=== PATIENT | female | born 1985 | race Hispanic/Latino ===

== ENCOUNTER 2024-05-21 22:42 | Emergency (ER) | payer BC ==
[2024-05-21] MEDS ORDERED: DIAZEPAM 5 MG TABLET ONE (23:07)
[2024-05-21] MEDS ORDERED: ASPIRIN 81 MG CHEWABLE TABLET ONE (23:07)
[2024-05-21 23:41] LABS: Absolute Eosinophils 0.1 K/uL (0-0.5); Absolute Monocytes 0.6 K/uL (0.1-1.3); Absolute Neutrophil 4.1 K/uL (1.8-8.0); Basophils % 0.2 % (0-1.3); Eosinophils % 1.2 % (0-4.4); Hematocrit 36.8 % (36.0-45.0); Hemoglobin 11.3 g/dL (12.0-15.0); Lymphocytes % 45.4 % (15.3-44.8); MCH 21.4 pg (27.0-35.0); MCHC 30.7 g/dL (32.0-36.0); MCV 69.8 fL (80-100); MPV 8.2 fL (7.6-11.3); Monocytes % 6.4 % (3.3-12.3); Neutrophils % 46.8 % (41.7-73.7); Nucleated Red Blood Cells % 0.1 % (0-0); Platelets 395 thou/uL (152-406); RBC Red Blood Cell Count 5.27 M/uL (3.86-4.86); Red Cell Distribution Width 16.3 % (12.1-15.2)
[2024-05-22] LABS: PT Prothrombin Time 11.3 SECONDS (9.4-12.5); Protime INR 1.01
[2024-05-22 00:01] LABS: D-Dimer 0.507 FEUug/mL (0-0.50)
[2024-05-22 00:16] LABS: ALT/SGPT 62 U/L (13-56); AST/SGOT 55 U/L (15-37); Albumin 3.5 g/dL (3.4-5.0); Albumin/Globulin Ratio 0.8 (1.1-1.8); Alkaline Phosphatase 105 U/L (45-117); Anion Gap 16.5 mEq/L (5.0-15.0); BUN Blood Urea Nitrogen 6 mg/dL (7-18); Bicarbonate 22 mEq/L (21-32); Bilirubin Total 0.3 mg/dL (0.2-1.0); Globulin 4.6 g/dL (2.3-3.5); Glomerular Filtration Rate 102 ml/min (=/>90); Magnesium 1.9 mg/dL (1.6-2.4); NT PRO-BNP 35 pg/mL (<125); Potassium 3.5 mEq/L (3.5-5.1); Protein, Total 8.1 g/dL (6.4-8.2); Sodium Level 133 mEq/L (136-145); Troponin High Sensitivity 8.7 pg/mL (<58.9)
[2024-05-22 00:17] LABS: Bilirubin Direct < 0.2 mg/dL (0-0.2); Bilirubin Indirect, Calculated 0.1 mg/dL (0.2-0.8)
[2024-05-22 00:18] LABS: Glucose Level 490 mg/dL (74-106)
[2024-05-22] MEDS ORDERED: INSULIN REGULAR (HUMAN) 100 UNIT/ML ONE (00:22)
[2024-05-22] MEDS ORDERED: NA CHLORIDE 0.9% 1,000 ML ONE (00:23)
--- NOTE | 2024-05-22 02:17 | ER ---
Nurse's Notes [facility] Name: Janette Brush Age: 38 yrs Sex: Female : 1985 Arrival Date: 05/21/2024 Time: 22:42 Bed 4 Private MD: Diagnosis: Type 2 diabetes mellitus with hyperglycemia Presentation: 05/21 22:55 Chief complaint: Patient states: about 30 minutes ago began to have difficulty tm6 breathing, all of a sudden. Coronavirus screen: Vaccine status: Patient reports being unvaccinated. Ebola Screen: Patient negative for fever greater than or equal to 101.5 degrees Fahrenheit, and additional compatible Ebola Virus Disease symptoms Patient denies exposure to infectious person. Patient denies travel to an Ebola-affected area in the 21 days before illness onset. No symptoms or risks identified at this time. Initial Sepsis Screen: Does the patient meet any 2 criteria? RR > 20 per min. No. Patient's initial sepsis screen is negative. Does the patient have a suspected source of infection? No. Patient's initial sepsis screen is negative. Risk Assessment: Do you want to hurt yourself or someone else? Patient reports no desire to harm self or others. Onset of symptoms was May 21, 2024 at 20:30. 22:55 Method Of Arrival: Wheelchair tm6 22:55 Acuity: LARS 3 tm6 Triage Assessment: 22:56 General: Appears distressed, Behavior is cooperative. Pain: Denies pain. EENT: No signs tm6 and/or symptoms were reported regarding the EENT system. Neuro: Level of Consciousness is awake, alert, obeys commands, Oriented to person, place, time, situation. Cardiovascular: Patient's skin is warm and dry. Respiratory: Reports shortness of breath at rest since 30 minutes ago Airway is patent Respiratory effort is labored, Respiratory pattern is tachypnea Breath sounds are clear bilaterally. Onset: The symptoms/episode began/occurred just prior to arrival, the patient has mild shortness of breath. GI: Abdomen is round. : No signs and/or symptoms were reported regarding the genitourinary system. Derm: No signs and/or symptoms reported regarding the dermatologic system. Musculoskeletal: No signs and/or symptoms reported regarding the musculoskeletal system. 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 - Infectious Disease History:: Denies. - Social history:: Smoking status: Patient denies any tobacco usage or history of. Patient uses alcohol, occasionally. - Family history:: not pertinent. Screenin:58 [facility] ED Fall Risk Assessment (Adult) History of falling in the last 3 months, tm6 including since admission No falls in past 3 months (0 pts) Confusion or Disorientation No (0 pts) Intoxicated or Sedated No (0 pts) Impaired Gait No (0 pts) Mobility Assist Device Used No (0 pt) Altered Elimination No (0 pt) Score/Fall Risk Level 0 - 2 = Low Risk Oriented to surroundings, Maintained a safe environment, Educated pt \T\ family on fall prevention, incl call for assistance when getting out of bed. Abuse screen: Denies threats or abuse. Denies injuries from another. Nutritional screening: No deficits noted. Tuberculosis screening: No symptoms or risk factors identified. Assessment: 22:58 Reassessment: see triage assessment. tm6 23:51 Reassessment: Patient and/or family updated on plan of care and expected duration. Pain tm6 level reassessed. Patient is alert, oriented x 3, equal unlabored respirations, skin warm/dry/pink. 05/22 01:02 Reassessment: Patient appears in no apparent distress at this time. tm6 02:02 Reassessment: Patient appears in no apparent distress at this time. Patient and/or jb4 family updated on plan of care and expected duration. Pain level reassessed. Patient is alert, oriented x 3, equal unlabored respirations, skin warm/dry/pink. 02:30 Cardiovascular: Rhythm is sinus rhythm. tm6 Vital Signs: 05/21 22:55 BP 131 / 99; Pulse 99; Resp 25; Temp 98.5(TE); Pulse Ox 99% on R/A; Weight 104.33 kg; tm6 Height 5 ft. 2 in. ; Pain 0/10; 23:51 Pulse 83; Pulse Ox 98% on R/A; Pain 0/10; tm6 05/22 01:01 BP 111 / 71; Pulse 80; Pulse Ox 99% on R/A; Pain 0/10; tm6 02:29 BP 118 / 67; Pulse 77; Resp 16; Temp 98.5(TE); Pulse Ox 100% on R/A; Pain 0/10; tm6 05/21 22:55 Body Mass Index 42.07 (104.33 kg, 157.48 cm) tm6 05/21 22:55 Pain Scale: Adult tm6 23:51 Pain Scale: Adult tm6 05/22 01:01 Pain Scale: Adult tm6 02:29 Pain Scale: Adult tm6 Mary Coma Score: 04:23 Eye Response: spontaneous(4). Motor Response: obeys commands(6). Verbal Response: sp4 oriented(5). Total: 15. ED Course: 05/21 22:47 Patient arrived in ED. jj6 22:47 Pb Galeano MD is Attending Physician. sp4 22:55 Agustin Bello, LYNETTE is Primary Nurse. tm6 22:56 Triage completed. tm6 22:56 Arm band placed on right wrist. EKG completed in triage. Results shown to MD. tm6 22:58 Patient has correct armband on for positive identification. Bed in low position. Call tm6 light in reach. Side rails up X 1. Provided Education on: use of call frausto. Client placed on continuous cardiac and pulse oximetry monitoring. NIBP monitoring applied. court monitor on. Pulse ox on. NIBP on. Door closed. Noise minimized. 23:30 Initial lab(s) drawn, by me, by EMS personnel. EKG done, by ED staff, reviewed by nick Galeano MD. Inserted saline lock: 20 gauge in right antecubital area, using aseptic technique. Blood collected. 23:33 Troponin HS Sent. jb4 23:33 PT-INR Sent. jb4 23:33 NT PRO-BNP Sent. jb4 23:33 Magnesium Sent. jb4 23:33 LFT's Sent. jb4 23:33 D-Dimer Sent. jb4 23:33 CBC with Diff Sent. jb4 23:33 Basic Metabolic Panel Sent. jb4 23:34 TSH Sent. jb4 23:34 T4 Free Sent. jb4 05/22 00:01 XRAY Chest (1 view) In Process Unspecified. EDMS 00:17 Notified ED physician of a critical lab result(s). glucose 490. tm6 02:16 Jono Fabian DO is Referral Physician. sp4 02:30 No provider procedures requiring assistance completed. IV discontinued, intact, tm6 bleeding controlled, No redness/swelling at site. Pressure dressing applied. Administered Medications: 05/21 23:11 Not Given (Other Intervention Used): diazepam5 mg IVP once jb4 23:11 Drug: Aspirin PO Chewable Tablet 324 mg PO once; 81 mg tablets x 4 Route: PO; jb4 23:11 Drug: Diazepam PO 10 mg PO once Route: PO; jb4 05/22 00:27 Drug: NS 0.9% IV 1000 ml IV at 1 bolus Per protocol; 1000 mL bolus Route: IV; Rate: 1 tm6 bolus; Site: right antecubital; 02:32 Follow up: IV Status: Completed infusion; IV Intake: 1000ml tm6 00:31 Drug: Insulin Regular Human IVP 10 units IVP once {Co-Signature: nick (Erik Crenshaw tm6 RN).} Route: IVP; Site: right antecubital; Medication: 05/21 22:58 VIS not applicable for this client. tm6 Intake: 05/22 02:32 IV: 1000ml; Total: 1000ml. tm6 Outcome: 02:17 Discharge ordered by . sp4 02:30 Discharged to home ambulatory, with family, tm6 02:30 Condition: stable 02:30 Discharge instructions given to patient, family, Instructed on discharge instructions, follow up and referral plans. medication usage, new diabetes diagnosis. Exercise, eating education. Follow up with PCP. Provided information on the free diabetes education program with [place] [facility]. Demonstrated understanding of instructions, follow-up care, medications, diabetes education Prescriptions given X 2, 02:31 Patient left the ED. tm6 Signatures: Dispatcher [employer] Erik Oneill, RN RN Cleo Muhammad Sergey, MD MD sp4 Agustin Bello RN RN [email or web address] Erik Crenshaw RN
--- NOTE | 2024-05-22 02:17 | EDPHYS ---
Physician Documentation [facility] Name: Janette Brush Age: 38 yrs Sex: Female : 1985 Arrival Date: 05/21/2024 Time: 22:42 Bed 4 Private MD: ED Physician Pb Galeano HPI: 05/21 22:47 This 38 yrs old Female presents to ER via Unassigned with complaints of sp4 Shortness Of Breath, Chest Tightness. 05/22 01:35 38-year-old female presents with acute shortness of breath starting spontaneously while sp4 sitting in the backyard. 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 - Infectious Disease History:: Denies. - Social history:: Smoking status: Patient denies any tobacco usage or history of. Patient uses alcohol, occasionally. - Family history:: not pertinent. ROS: 05/22 01:35 Constitutional: Negative for fever, chills, and weight loss, positive acute dyspnea sp4 Eyes: Negative for injury, pain, redness, and discharge, ENT: Negative for injury, pain, and discharge, Neck: Negative for injury, pain, and swelling, Cardiovascular: Negative for chest pain, palpitations, and edema, Respiratory: positive Acute dyspnea Abdomen/GI: Negative for abdominal pain, nausea, vomiting, diarrhea, and constipation, Back: Negative for injury and pain, MS/Extremity: Negative for injury and deformity, Skin: Negative for injury, rash, and discoloration, Neuro: Negative for headache, weakness, numbness, tingling, and seizure, Psych: Negative for depression, anxiety, Allergy/Immunology: Negative for hives, rash, and allergies All other systems are negative, Exam: 01:35 Constitutional: This is a well developed, well nourished patient who is awake, alert, sp4 anxious appearing female Head/Face: Normocephalic, atraumatic. Eyes: Pupils equal round and reactive to light, extra-ocular motions intact. Lids and lashes normal. Conjunctiva and sclera are not injected. Cornea within normal limits. Periorbital areas with no swelling, redness, or edema. ENT: Nares patent. No nasal discharge, no septal abnormalities noted. Tympanic membranes are normal and external auditory canals are clear. Oropharynx with no redness, swelling, or masses, exudates, or evidence of obstruction, uvula midline. Mucous membranes moist. Neck: Trachea midline, no thyromegaly or masses palpated, and no cervical lymphadenopathy. Supple, full range of motion without nuchal rigidity, or vertebral point tenderness. Chest/axilla: Normal chest wall appearance and motion. Nontender with no deformity. No lesions are appreciated. Cardiovascular: Regular rate and rhythm with a normal S1 and S2. No gallops, murmurs, or rubs. Normal PMI, no JVD. No pulse deficits. Respiratory: Lungs have equal breath sounds bilaterally, clear to auscultation and percussion. No rales, rhonchi or wheezes noted. No increased work of breathing, no retractions or nasal flaring. Abdomen/GI: Soft, with normal bowel sounds. No distension or tympany. No guarding or rebound. No evidence of tenderness throughout. Back: No spinal tenderness. No costovertebral tenderness. Skin: Warm, dry with normal turgor. Normal color with no rashes, no lesions, and no evidence of cellulitis. MS/ Extremity: Pulses equal, no cyanosis. Neurovascular intact. Full, normal range of motion. Neuro: Awake and alert, GCS 15, oriented to person, place, time, and situation. Cranial nerves II-XII grossly intact. Motor strength 5/5 in all extremities. Sensory grossly intact. Psych: Awake, alert, with orientation to person, place and time. Behavior, mood, and affect are within normal limits 01:35 ECG was reviewed by the Attending Physician. EKG 2301 reveals normal sinus rhythm at the rate of 95. Vital Signs: 05/21 22:55 BP 131 / 99; Pulse 99; Resp 25; Temp 98.5(TE); Pulse Ox 99% on R/A; Weight 104.33 kg; tm6 Height 5 ft. 2 in. ; Pain 0/10; 23:51 Pulse 83; Pulse Ox 98% on R/A; Pain 0/10; tm6 05/22 01:01 BP 111 / 71; Pulse 80; Pulse Ox 99% on R/A; Pain 0/10; tm6 02:29 BP 118 / 67; Pulse 77; Resp 16; Temp 98.5(TE); Pulse Ox 100% on R/A; Pain 0/10; tm6 05/21 22:55 Body Mass Index 42.07 (104.33 kg, 157.48 cm) 6 05/21 22:55 Pain Scale: Adult tm6 23:51 Pain Scale: Adult tm6 05/22 01:01 Pain Scale: Adult tm6 02:29 Pain Scale: Adult tm6 Mary Coma Score: 04:23 Eye Response: spontaneous(4). Motor Response: obeys commands(6). Verbal Response: sp4 oriented(5). Total: 15. MDM: 05/21 22:50 Patient medically screened. 4 05/22 01:42 ED course: EXAM DESCRIPTION: Chest Single View 05/22/2024 12:05 AM CDT CLINICAL HISTORY: sp4 38 years, Female, DYSPNEA COMPARISON: None FINDINGS: 1 views of the chest was obtained. No prior films are available at this time for comparison. There is slight decreased lung volume. Mediastinum: The cardiomediastinal silhouette appears normal in size and shape. Lungs: No areas of consolidations or masses are identified. Heart: The heart is normal in size. Thoracic aorta: The thoracic aorta demonstrate to be normal. Pulmonary vasculature: The pulmonary vasculature is normal in distribution. Pleura: The costophrenic angles demonstrate to be sharp. Osseous structures: The bony structures demonstrate to be within normal limits. Other: None. IMPRESSION: No acute cardiopulmonary disease is seen. 04:23 Differential diagnosis: Anemia Anxiety Reaction asthma, Bronchitis CHF exacerbation, sp4 Chronic Obstructive Pulmonary Disease. Data reviewed: vital signs, nurses notes, lab test result(s), EKG, radiologic studies, plain films. 05/21 22:54 Order name: Basic Metabolic Panel; Complete Time: 01:38 [facility] 05/21 22:54 Order name: CBC with Diff 4 05/21 22:54 Order name: D-Dimer [facility] 05/21 22:54 Order name: LFT's; Complete Time: 01:38 [facility] 05/21 22:54 Order name: Magnesium; Complete Time: 01:38 [facility] 06/20 22:54 Order name: NT PRO-BNP; Complete Time: 01:38 4 05/21 22:54 Order name: PT-INR [facility] 05/21 22:54 Order name: Troponin HS; Complete Time: 01:38 [facility] 05/21 22:55 Order name: TSH; Complete Time: 01:38 4 05/21 22:55 Order name: T4 Free; Complete Time: 01:38 [facility] 05/21 23:53 Order name: CBC Smear Scan [facility]TX 05/22 01:43 Order name: Glucose, Ancillary Testing; Complete Time: 01:47 [facility]TX 05/21 22:54 Order name: XRAY Chest (1 view) [facility] 05/21 22:54 Order name: Cardiac monitoring; Complete Time: 23:04 [facility] 05/21 22:54 Order name: EKG - Nurse/Tech; Complete Time: 23:04 [facility] 05/21 22:54 Order name: IV Saline Lock; Complete Time: 23:34 [facility] 05/21 22:54 Order name: Labs collected and sent; Complete Time: 23:34 [facility] 05/21 22:54 Order name: O2 Per Protocol; Complete Time: 23:04 [facility] 05/21 22:54 Order name: O2 Sat Monitoring; Complete Time: 23:04 sp4 EC:35 Rate is 95 beats/min. Rhythm is regular, Normal Sinus Rhythm. QRS [place] is Normal. [place] sp4 interval is normal. QRS interval is normal. QT interval is prolonged. No Q waves. T waves are Normal. No ST changes noted. Clinical impression: Normal ECG. Interpreted by me. Reviewed by me. Administered Medications: 05/21 23:11 Not Given (Other Intervention Used): diazepam5 mg IVP once 4 23:11 Drug: Aspirin PO Chewable Tablet 324 mg PO once; 81 mg tablets x 4 Route: PO; 23:11 Drug: Diazepam PO 10 mg PO once Route: PO; 05/22 00:27 Drug: NS 0.9% IV 1000 ml IV at 1 bolus Per protocol; 1000 mL bolus Route: IV; Rate: 1 tm6 bolus; Site: right antecubital; 02:32 Follow up: IV Status: Completed infusion; IV Intake: 1000ml tm6 00:31 Drug: Insulin Regular Human IVP 10 units IVP once {Co-Signature: nick (Erik Crenshaw tm6 RN).} Route: IVP; Site: right antecubital; Disposition Summary: 05/22/24 02:17 Discharge Ordered Notes: Location: Home sp4 Problem: new sp4 Symptoms: have improved sp4 Condition: Stable sp4 Diagnosis - Type 2 diabetes mellitus with hyperglycemia sp4 Followup: sp4 - With: Jono Fabian DO - When: 7 - 10 days - Reason: Recheck today's complaints Discharge Instructions: - Discharge Summary Sheet sp4 - Type 2 Diabetes Mellitus, Diagnosis, Adult sp4 Forms: - Patient Portal Instructions sp4 Prescriptions: - Glipizide 5 mg Oral tablet - take 1 tablet ORAL route once daily before a meal; 30 tablet; Refills: 0, sp4 Product Selection Permitted - Metformin 1,000 mg Oral tablet - take 1 tablet ORAL route every 12 hours with morning and evening meals; 60 sp4 tablet; Refills: 0, Product Selection Permitted Signatures: Dispatcher [employer] Erik Oneill RN RN jb4 Pb Galeano MD MD sp4 Agustin Bello RN RN tm6 Erik Crenshaw RN jb4 Corrections: (The following items were deleted from the chart) 05/21 22:55 22:55 BASIC METABOLIC PANEL+C.LAB.BRZ ordered. EDMS EDMS 22:55 22:55 CBC+H.LAB.BRZ ordered. EDMS EDMS 22:55 22:55 D-DIMER+COAG.LAB.BRZ ordered. EDMS EDMS 22:55 22:55 HEPATIC FUNCTION+C.LAB.BRZ ordered. EDMS EDMS 22:55 22:55 MAGNESIUM+C.LAB.BRZ ordered. EDMS EDMS 22:55 22:55 PROBNP+C.LAB.BRZ ordered. EDMS EDMS 22:55 22:55 PROTIME (+INR)+COAG.LAB.BRZ ordered. EDMS EDMS 22:55 22:55 Troponin High Sensitivity+C.LAB.BRZ ordered. EDMS EDMS 22:55 22:55 Chest Single View+RAD.RAD.BRZ ordered. EDMS EDMS 22:55 22:55 THYROID STIMULAT HORMONE+C.LAB.BRZ ordered. EDMS EDMS 22:55 22:55 T4 FREE+C.LAB.BRZ ordered. EDMS EDMS
[2024-05-22 03:29] VITALS: BP 118/67; TEMP 98.5; O2SAT 100
[2024-05-22 04:19] LABS: Blood Morphology Comment NOTED (NOT SEEN); Platelet Estimate ADEQ; White Blood Cell Scan OK (OK)
[2024-05-22 04:20] LABS: Hypochromasia 1+; Microcytosis 2+
--- NOTE | 2024-05-22 12:03 | RAD REPORT ---
EXAM DESCRIPTION: RAD - Chest Single View - 05/21/2024 11:59 pm CLINICAL HISTORY: 38 years, Female, DYSPNEA COMPARISON: None FINDINGS: 1 views of the chest was obtained. No prior films are available at this time for compari son. There is slight decreased lung volume. Mediastinum: The cardiomediastinal silhouette appears normal in size and shape. Lungs: No areas of consolidations or masses are identified. Heart: The heart is normal in size. Thoracic aorta: The thoracic aorta demonstrate to be normal. Pulmonary vasculature: The pulmonary vasculature is normal in distribution. Pleura: The costophrenic angles demonstrate to be sharp. Osseous structures: The bony structures demonstrate to be within normal limits. Other: None. IMPRESSION: No acute cardiopulmonary disease is seen Electronically signed by: Larry Carlson MD 05/22/2024 12:05 AM CDT RP Due to temporary technical issues with the PACS/Fluency reporting system, reports are being signed by the in house radiologist without review as a courtesy to ensure prompt reporting. The interpreting r adiologist is fully responsible for the content of the report.
--- NOTE | 2024-05-25 13:11 | EKG ---
Test Date: 2024-05-21 Test Time: 23:01:56 Hazmat Tanker Driver: ERICK MEASUREMENT RESULTS: Intervals: Rate: 95 WV: 130 QRSD: 86 QT: 390 QTc: 490 [place]: P: 38 WV: 130 QRS: 85 T: 46 INTERPRETIVE STATEMENTS: Normal sinus rhythm Prolonged QT Abnormal ECG No previous ECG available for comparison Electronically Signed On 05-25-24 13:04:16 CDT by Mode Bowser
== END 2024-05-22 02:31 | disposition home or self-care (01) ==
LOC: ER 22:42
DX: E11.65 Type 2 diabetes mellitus with hyperglycemia (principal)
CPT/HCPCS: 96361; 85025; 80048; 36415; 83735; 85610; 82947; 85379; 80076; 84443; 84484; 84439; 83880; 71045; 96374; 99285; J7030; 93005